=== PATIENT | male | born 1975 | race Caucasian/White ===

== ENCOUNTER 2021-02-26 15:32 | Emergency (ER) | payer BC ==
[~2021-02-26] VITALS: Ht 182.9 cm; Wt 115.7 kg
[2021-02-26] MEDS ORDERED: IMITREX50 MG PO (21:02)
[2021-02-27] MEDS ORDERED: AZOR 10-20 MG1 EACH (04:27)
== END 2021-02-26 21:02 | disposition home or self-care (01) ==
LOC: ER 15:32
DX: G44.009 Cluster headache syndrome, unspecified, not intractable (principal)

== ENCOUNTER 2021-02-27 04:14 | Emergency (ER) | payer BC ==
[~2021-02-27] VITALS: Ht 182.9 cm; Wt 115.7 kg
[~2021-02-27 04:14] MED LIST: IMITREX50 MG PO
[2021-02-27] MEDS ORDERED: AZOR 10-20 MG1 EACH (04:27)
== END 2021-02-27 14:24 | disposition home or self-care (01) ==
LOC: ER 04:14
DX: G44.009 Cluster headache syndrome, unspecified, not intractable (principal)